=== PATIENT | male | born 1980 | race Caucasian/White ===

== ENCOUNTER 2021-02-20 02:56 | Emergency (ER) | payer OTHER, SELFPAY ==
--- NOTE | 2021-02-20 02:57 | ED.GENADUL_ITS ---
Discharge Plan Disposition Patient Disposition: HOME Condition: Good Discharge Details Clinical Impression: Left lateral ankle pain Primary Care Provider: None,None ED Provider: Sanjiv Quinonez Meds and New Rx's Prescriptions: Continued Turmeric 1 tab PO DAILY RF: 0 Changed ibuprofen 400 mg Tablet 600 mg PO Q6H PRN (Reason: Pain) Qty: 0 RF: 0 Discharge Instructions Additional Instructions: No fracture or bony abnormality seen on x-ray. Take it easy over the weekend, with a walking boot and weight-bear as tolerated, elevate, ice, ibuprofen. Will refer to care management for primary care provider referral. Return to ED for increasing pain, swelling, redness, fever, other concerns Referrals: Care Management [Provider Group] Medical Decision Making Patient with increased left ankle pain over the last few days without specific injury. No erythema, warmth, fever and doubt septic joint. Relatively good range of motion. Swelling and tenderness isolated mostly to the lateral malleolus. X-ray ordered and per my review and preliminary radiology read no bony abnormality seen. Given the amount of swelling and pain laterally will place in walking boot. Ice, elevate over the weekend. Weight-bear as tolerated. Will refer to care management for primary care provider is new to the area. Return to ED if increasing pain, swelling, fever, redness, other concerns HPI General Mode of arrival: ambulatory . Date/Time Provider Initiated Documentation: 02/20/21 02:57 . Limitations to Documentation: no limitations . Information obtained by: patient and RN notes reviewed . HPI Narrative: Patient presents to ED with left ankle pain. Pain began bothering him 3 days ago. He has had swelling on and off. He denies any specific injury that he can recall. Pain is mostly lateral aspect of the ankle. Denies numbness or weakness. Has been using ibuprofen and acetaminophen though not on a regular basis. No pain in the foot or above the ankle. Some discomfort on the lateral aspect just above the ankle. No redness, fever, rash. Related Data Home Medications Medication Instructions Recorded Confirmed Turmeric 1 tab PO DAILY 02/20/21 02/20/21 ibuprofen 600 mg PO Q6H PRN #0 tab 02/20/21 02/20/21 Previous Rx's Medication Instructions Recorded ibuprofen 600 mg PO Q6H PRN #0 tab 02/20/21 Allergies Allergy/AdvReac Type Severity Reaction Status Date / Time No Known Allergies Allergy Unverified 02/20/21 03:07 Review of Systems Narrative: As documented in HPI otherwise negative as below. Const: no fever, chills, weakness Resp: no cough, SOB, pleuritic pain CV: no CP, diaphoresis, edema, syncope GI: no abdominal pain, nausea, vomiting, diarrhea Neuro: no headache, numbness, focal weakness, confusion PFSH Medical History No significant past medical history Surgical History H/O abdominal surgery as infant, does not know reason Social History Smoking/Tobacco Use Status: Current-Occasional Tobacco Type: cigars Smoking risk assessment performed?: Yes Alcohol Intake: never Drug use: Never Substance use type: does not use Do you feel safe at home: Yes Do you feel safe in your relationship?: Yes Exam Narrative Exam Narrative: Const: WDWN male in NAD. HEENT: NC/AT. Normal facial exam. Neck: Supple. Trachea midline. Lungs: Normal respiratory effort. Neuro: A+O x 3. Normal speech, mentation. Cranial nerves II - XII grossly intact. No gross motor or sensory deficit. Ext: No C/C/E. No calf tenderness. Swelling and tenderness left lateral malleolus. Pain with range of motion involving ankle. No erythema warmth. Good pulses in the foot. Normal strength and sensation. Skin: Warm and dry without rash.
[2021-02-20 03:03] VITALS: BP 139/81; PULSE 127; RESP 20; TEMP 37.2; O2SAT 97
--- NOTE | 2021-02-20 03:25 | DI.RAD_ITS ---
Exam(s) XR ANKLE LT COMPLETE EXAM: XR ANKLE LT COMPLETE CLINICAL HISTORY: pain TECHNIQUE: 2D digital imaging was performed. COMPARISON: No exams were available for comparison FINDINGS: BONES: No acute fracture is present. No bony destructive lesion is seen. JOINTS:The ankle mortise is normally aligned. SOFT TISSUE: There is soft tissue swelling about the ankle. No radiopaque foreign bodies are present . IMPRESSION: 1. No acute fracture or dislocation. 2. Soft tissue swelling about the ankle. DATA REPOSITORY: RADIATION DOSE DELIVERED:
[2021-02-20] MEDS: Ibuprofen 600 MG TAB PO (03:47)
--- NOTE | 2021-02-20 03:47 | DI.VRAD_ITS ---
PROCEDURE INFORMATION: Exam: XR Left Ankle Exam date and time: 02/20/2021 3:09 AM Age: 40 years old Clinical indication: Pain; Ankle; Left TECHNIQUE: Imaging protocol: XR Left ankle. Views: 3 or more views. COMPARISON: No relevant prior studies available. FINDINGS: Bones/joints: Bone mineralization is age-appropriate. There is no evidence of fracture. No evidence of dislocation. The joint spaces are adequately preserved; no significant degenerative narrowing and no bony erosion seen. Soft tissues: No radiopaque foreign body present. There is soft tissue swelling present. IMPRESSION: 1. No acute osseous abnormality. 2. Soft tissue swelling only. Dictated and Authenticated by: Norman Sutherland MD. Ordering:JASON Kincaid MD
--- NOTE | 2021-02-20 03:58 | NUR.NOTE ---
Referral to Care Management to establish pcp. Seen in ED for left ankle pain/injury. Can f/u routine unless ankle isn't improving in 2 weeks or so.Nursing Note:
[2021-02-20 04:09] VITALS: BP 139/88; PULSE 118; RESP 20; O2SAT 97
== END 2021-02-20 04:09 | disposition home or self-care (01) ==
PROVIDERS: Emergency Provider Emergency Medicine
DX: M25.571 Pain in right ankle and joints of right foot (principal)
CPT/HCPCS: 29515; 99283; 73610